=== PATIENT | female | born 2000 | race Two or more races ===

== ENCOUNTER 2025-04-24 11:44 | Observation (INO) | payer MEDICAID ==
[2025-04-24 12:47] LABS: Urine Protein, UAD TRACE (Negative)
[2025-04-24 12:48] LABS: Hematocrit 35.3 % (36.0-46.0); Hemoglobin 11.6 g/dL (12.2-16.2); Mean Corpuscular Hemoglobin 26.6 pg (28.0-32.0); Mean Corpuscular Volume 80.6 fL (80.0-100.0); Nucleated Red Blood Cells % 0.0 %
[2025-04-24 12:56] LABS: Protein, Urine 16.4 mg/dL (1-14)
[2025-04-24 12:58] LABS: INR 1.01 (0.9-1.15); Partial Thromboplastin Time 33.6 SEC (24.5-34.5); Prothrombin Time 10.7 sec (9.3-11.8)
[2025-04-24 13:00] LABS: Alanine Aminotransferase 31 U/L (7-40); Albumin 3.8 g/dL (3.2-4.8); Anion Gap 8 (5-15); Bilirubin, Total 0.4 mg/dL (0.2-1.0); Calcium 9.0 mg/dL (8.7-10.4); Carbon Dioxide 23 mmol/L (20-31); Potassium 3.8 mmol/L (3.5-5.1); Sodium 139 mmol/L (136-145); Total Protein 7.0 g/dL (5.7-8.2); Uric Acid 4.4 mg/dL (3.1-7.8)
[2025-04-24 13:06] LABS: Alkaline Phosphatase 142 U/L (46-116); BUN/Creatinine Ratio 7.4 (10.0-20.0); Blood Urea Nitrogen < 5 mg/dL (9-23); Chloride 108 mmol/L (98-107); Glucose 63 mg/dL (74-106)
--- NOTE | 2025-04-24 15:53 | DVHDS2 ---
Physician Discharge Progress N Final Diagnosis: [id number] Operations or Procedures: Operations or Procedures nst reactive reviwed,sono Condition on Discharge: Good Disposition: Home Discharge Instructions: Diet: Regular Activity: No Restrictions, As Tolerated Medications: na Follow Up Care: Specialist: 3d Discharge Statement: "Patient was advised to return to the ER or call 911 if any headaches, dizziness, shortness of breath, chest pain, abdominal pain, bleeding, fevers, or worsening of medical condition. Patient was counseled about treatment plan, medications, possible side effects, patientverbalized understanding. All questions were answered to the best of my ability. This discharge took greater then 30 minutes in planning, reviewing documentat ion, counseling the patient, and discussing with other team members." Visit Coding OBGYN Date of Service: Apr 24, 2025 Billing Provider: NITZA LUCAS DO P[employer]ION ENGINEER Common Visit Codes: [id number] OBS CARE (HIGH) POWER DISTRIBUTION ENGINEER Procedure Codes: 57060-68- NON-STRESS TEST INTZA LUCAS DO Apr 24, 2025 15:53
== END 2025-04-24 13:54 | disposition home or self-care (01) ==
LOC: UNDOADMOB 11:44 → LDRP 11:44
PROVIDERS: ADMIT Obstetrics & Gynecology; ATTEND Obstetrics & Gynecology
DX: O13.3 Gestational [pregnancy-induced] hypertension without significant proteinuria, third trimester (principal); Z3A.31 31 weeks gestation of pregnancy; Z98.890 Other specified postprocedural states
CPT/HCPCS: 36415; 59025; 80053; 81001; 81002; 82570; 84156; 84550; 85025; 85610; 85730; 94760; G0378